=== PATIENT | male | born 1995 | race Caucasian/White ===

== ENCOUNTER 2024-05-11 21:19 | Observation (INO) | payer OTHER ==
[~2024-05-11] VITALS: Ht 177.8 cm; Wt 95.0 kg
[2024-05-11 21:29] VITALS: BP 141/96
[2024-05-11 21:30] VITALS: BP 129/92
[2024-05-11] MEDS ORDERED: DICYCLOMINE HCL 20 MG/2 ML VIAL IM ONE (21:30)
[2024-05-11] MEDS ORDERED: KETOROLAC TROMETHAMINE 30 MG/ML SDV IV ONE (21:30)
[2024-05-11] MEDS ORDERED: ISOVUE-300 (Iopamidol) 100 ML SDV IV ONE (21:30)
[2024-05-11 21:43] LABS: BASO% 0.3 % (0-3); EOS% 1.5 % (0-8); HEMOGLOBIN 15.8 g/dl (14.0-18.0); IMMATURE GRANULOCYTES 0.1 % (0.0-5.0); LYMPH% 15.5 % (15-41); MEAN CORPUSCULAR HGB 29.5 pG CALC (26.0-32.0); MEAN CORPUSCULAR HGB CONC 34.3 g/dL CAL (32.0-36.0); MONO% 7.1 % (2-13); NEUT# 9.21 thou/uL (1.82-7.42); NEUT% 75.5 % (42-76); RED BLOOD COUNT 5.35 mill/uL (4.70-6.10); RED CELL DISTRI WIDTH 12.4 % (11.5-15.5)
[2024-05-11 21:53] LABS: ALBUMIN 4.8 g/dL (3.2-5.0); BILIRUBIN, TOTAL 1.1 mg/dL (0.2-1.3); CREATININE 1.2 mg/dL (0.7-1.3); POTASSIUM 3.7 mmol/l (3.5-5.1); TOTAL PROTEIN 7.9 g/dL (6.3-8.2)
[2024-05-11 22:00] VITALS: BP 136/84
[2024-05-11 22:01] LABS: URINE BLOOD DIPSTICK Moderate (NEGATIVE); URINE GLUCOSE - DIPSTICK Negative (NEGATIVE); URINE KETONE 15 mg/dL (NEGATIVE); URINE LEUK ESTERASE Negative (NEGATIVE); URINE NITRITE - DIPSTICK Negative (Negative); URINE PROTEIN - DIPSTICK 30 mg/dL (NEG-TRACE); URINE SPECIFIC GRAVITY >=1.030
[2024-05-11 22:03] LABS: URINE COLOR Yellow
[2024-05-11 22:05] LABS: URINE WBC 0-2 WBC/hpf (0-5)
[2024-05-11] MEDS ORDERED: cefTRIAXone SODIUM 2 GM in SODIUM CHLORIDE 0.9% 100 ML IV ONE (22:15)
[2024-05-11] MEDS ORDERED: SODIUM CHLORIDE 0.9% 1,000 ML IV ONE ×3 (22:15)
[2024-05-11 22:30] VITALS: BP 132/72
[2024-05-11 23:30] VITALS: BP 135/77
[2024-05-12] MEDS ORDERED: MORPHINE SULFATE 4 MG/ML VIAL IV ONE (01:20)
[2024-05-12] MEDS ORDERED: ONDANSETRON HCl 4 MG/2 ML SDV IV ONE (01:20)
[2024-05-12] MEDS ORDERED: Polyethylene Glycol 3350 17 GM/PKT PO PRN (01:30)
[2024-05-12] MEDS ORDERED: ONDANSETRON HCl 4 MG/2 ML SDV IV PRN (01:30)
[2024-05-12] MEDS ORDERED: ALUM & MAG HYDROX-SIMETHICONE 30 ML PO PRN (01:30)
[2024-05-12] MEDS ORDERED: FAMOTIDINE 10MG/ML 2ML SDV IV PRN (01:30)
[2024-05-12] MEDS ORDERED: ONDANSETRON 4 MG/TAB ODT PO PRN (01:30)
[2024-05-12] MEDS ORDERED: IBUPROFEN 800 MG/TAB PO PRN (01:30)
[2024-05-12 03:10] VITALS: BP 124/70
[2024-05-12] MEDS ORDERED: MORPHINE SULFATE 4 MG/ML VIAL IV PRN (04:10)
[2024-05-12] MEDS ORDERED: SODIUM CHLORIDE 0.9% 1,000 ML IV PRN (07:30)
[2024-05-12] MEDS ORDERED: MAGNESIUM HYDROXIDE 30 ML UDC PO PRN (07:30)
[2024-05-12] MEDS ORDERED: ACETAMINOPHEN 325 MG/TAB PO PRN (07:30)
[2024-05-12] MEDS ORDERED: KETOROLAC TROMETHAMINE 15 MG/ML SDV IV PRN (07:40)
[2024-05-12] MEDS ORDERED: TAMSULOSIN HCL 0.4 MG CAP PO SCH (08:00)
[2024-05-12 13:45] VITALS: BP 135/80
[2024-05-12 17:00] VITALS: BP 130/76
[2024-05-12 19:30] VITALS: BP 130/66
[2024-05-12] MEDS ORDERED: cefTRIAXone SODIUM 2 GM in SODIUM CHLORIDE 0.9% 100 ML IV SCH (22:00)
[2024-05-13] VITALS: BP 129/69
[2024-05-13 02:19] VITALS: BP 131/70
[2024-05-13 04:00] VITALS: BP 131/68
[2024-05-13 05:53] LABS: BASO% 0.3 % (0-3); EOS% 3.6 % (0-8); HEMATOCRIT 44.3 % (39.0-50.0); HEMOGLOBIN 14.7 g/dl (14.0-18.0); IMMATURE GRANULOCYTES 0.2 % (0.0-5.0); LYMPH% 28.7 % (15-41); MEAN CELL VOLUME 88.8 fL CALC (80.0-100.0); MEAN CORPUSCULAR HGB 29.5 pG CALC (26.0-32.0); MEAN CORPUSCULAR HGB CONC 33.2 g/dL CAL (32.0-36.0); MONO% 9.2 % (2-13); NEUT# 3.35 thou/uL (1.82-7.42); RED BLOOD COUNT 4.99 mill/uL (4.70-6.10); RED CELL DISTRI WIDTH 12.6 % (11.5-15.5)
[2024-05-13 06:26] LABS: BILIRUBIN, TOTAL 0.7 mg/dL (0.2-1.3); MAGNESIUM 2.3 mg/dL (1.6-2.3); TOTAL PROTEIN 6.4 g/dL (6.3-8.2)
[2024-05-13 07:01] LABS: POTASSIUM 4.8 mmol/l (3.5-5.1)
[2024-05-13 07:02] LABS: ALBUMIN 3.7 g/dL (3.2-5.0)
[2024-05-13] MEDS ORDERED: ISOVUE-300 (Iopamidol) 100 ML SDV IV ONE (07:13)
[2024-05-13] MEDS ORDERED: SODIUM CHLORIDE 3,000 ML BAG FOR IRRIGATION IR ONE (07:16)
[2024-05-13] MEDS ORDERED: STERILE WATER FOR IRRIGATION 1,000 ML BTL IR ONE (07:16)
[2024-05-13] MEDS ORDERED: SODIUM CHLORIDE 1,000 ML BTL IR ONE (07:17)
[2024-05-13] MEDS ORDERED: SODIUM CHLORIDE 0.9% 1,000 ML BAG IV ONE (07:24)
[2024-05-13] MEDS ORDERED: PROPOFOL 200 MG/20 ML VIAL IV ONE (07:24)
[2024-05-13] MEDS ORDERED: LIDOCAINE HCL 2% 2ML SDV IV ONE (07:24)
[2024-05-13] MEDS ORDERED: SUCCINYLCHOLINE CHLORIDE 20 MG/ML 10ML VIAL IV ONE (07:24)
[2024-05-13 08:00] VITALS: BP 143/80
[2024-05-13] MEDS ORDERED: ACETAMINOPHEN 100 ML IV ONE (09:15)
[2024-05-13 09:52] VITALS: BP 149/83
[2024-05-13] MEDS ORDERED: SODIUM CHLORIDE 0.9% 1,000 ML IV ONE (10:26)
[2024-05-13 12:00] VITALS: BP 139/63
[2024-05-13] MEDS ORDERED: CIPROFLOXACN500 MG PO (13:06)
[2024-05-13] MEDS ORDERED: TORADOL PO (13:06)
[2024-05-13] MEDS ORDERED: TAMSULOSIN0.4 MG PO (13:06)
== END 2024-05-13 14:15 | disposition home or self-care (01) | DRG 661 ==
LOC: ED 21:19 → ED-I 05-12 01:12 → ED 05-12 01:28 → ICU 05-12 01:29
PROVIDERS: Internal Medicine; ADMIT Internal Medicine; ATTEND Internal Medicine
PROC: 0T768DZ Dilation of Right Ureter with Intraluminal Device, Via Natural or Artificial Opening Endoscopic (ICD-10-PCS; principal; 2024-05-13)
DX: N13.6 Pyonephrosis (principal)
CPT/HCPCS: C1769; J0131; Q9966; Q9967